=== PATIENT | female | born 1940 | race Caucasian/White ===

== ENCOUNTER 2019-12-03 14:07 | Emergency (ER) | payer MEDICARE, BC ==
[2019-12-03 15:05] LABS: POTASSIUM,POC 4.4 mmol/L (3.5-4.5)
[2019-12-03] MEDS ORDERED: Meclizine 25 MG Tab PO ONE (15:15)
[2019-12-03] MEDS ORDERED: Ondansetron 4 MG Tab.DIS PO ONE (15:31)
--- NOTE | 2019-12-03 15:57 | EDM.PDOC ---
ED HPI GENERAL MEDICAL PROBLEM - General Chief Complaint: General Stated Complaint: dizziness Time Seen by Provider: 12/03/19 14:20 Source of Information: Reports: Patient History Limitations: Reports: No Limitations - History of Present Illness INITIAL COMMENTS - FREE TEXT/NARRATIVE: Pt with dizziness Worse when moves or moves head Better when sitting still No fever No chest pain No cough No SOB Has had this before Onset: Gradual Duration: Day(s): Location: Reports: Generalized - Related Data Allergies Allergy/AdvReac Type Severity Reaction Status Date / Time morphine Allergy Vomiting Verified 12/03/19 14:27 Home Meds: Home Meds Ascorbic Acid [Vitamin C] 1,000 mg PO DAILY 12/03/19 [History] Bilberry 375 mg PO DAILY 12/03/19 [History] Calcium Carb, Cit/Magnesium Ox [Calmag Thins Tablet] 1 each PO DAILY 12/03/19 [History] Cholecalciferol (Vitamin D3) [Vitamin D3] 2,000 unit PO DAILY 12/03/19 [History] Flaxseed Oil [Flax Oil] 1,000 mg PO DAILY 12/03/19 [History] Glucosamine [Glucosamine Sulfate] 1,000 mg PO DAILY 12/03/19 [History] Lutein 20 mg PO DAILY 12/03/19 [History] Magnesium 250 mg PO DAILY 12/03/19 [History] Potassium Gluconate [Potassium] 99 mg PO DAILY 12/03/19 [History] Vitamin E 400 unit PO DAILY 12/03/19 [History] Past Medical History - Past Health History Medical/Surgical History: Denies Medical/Surgical History Social & Family History - Tobacco Use Tobacco Use Status *Q: Never Tobacco User Second Hand Smoke Exposure: No ED ROS GENERAL - Review of Systems Review Of Systems: See Below HEENT: Reports: No Symptoms Respiratory: Reports: No Symptoms Cardiovascular: Reports: No Symptoms GI/Abdominal: Reports: No Symptoms Musculoskeletal: Reports: No Symptoms Neurological: Reports: Dizziness ED EXAM, GENERAL - Physical Exam Exam: See Below Exam Limited By: No Limitations General Appearance: Alert, WD/WN, Mild Distress Eye Exam: Bilateral Eye: EOMI, PERRL Ears: Normal External Exam, Normal Canal, Normal TMs Nose: Normal Inspection Throat/Mouth: Normal Oropharynx Respiratory/Chest: Lungs Clear Cardiovascular: Regular Rate, Rhythm Extremities: Normal Inspection Neurological: Alert, Oriented, No Motor/Sensory Deficits Course - Vital Signs Last Recorded V/S: Last Vital Signs Temp 98.2 F 12/03/19 14:34 Pulse 84 12/03/19 14:34 Resp 16 12/03/19 14:34 BP 127/58 L 12/03/19 14:34 Pulse Ox 97 12/03/19 14:34 - Orders/Labs/Meds Orders: Active Orders 24 hr Category Date Time Status EKG 12 Lead [EKG Documentation Completion] [RC] URGENT Care 12/03/19 14:14 Active PT Evaluation and Treatment [CONS] Routine Cons 12/03/19 15:12 Active COMPREHENSIVE METABOLIC PN,CMP [CHEM] Stat Lab 12/03/19 14:26 Results Labs: Laboratory Tests 12/03/19 12/03/19 12/03/19 Range/Units 14:26 14:26 14:53 WBC 5.3 (4.0-10.0) x10^3/uL RBC 4.56 (4.00-5.50) x10^6/uL Hgb 13.3 (12.0-16.0) g/dL Hct 41.6 (33.0-47.0) % MCV 91.2 (78.0-93.0) fL MCH 29.2 (26.0-32.0) pg MCHC 32.0 (32.0-36.0) g/dL RDW Coeff of Chelo 13.3 (10.0-15.0) % Plt Count 169 (130-400) x10^3/uL Neut % (Auto) 68.7 (50.0-80.0) % Lymph % (Auto) 24.0 L (25.0-50.0) % [place] % (Auto) 5.4 (2.0-11.0) % Eos % (Auto) 1.7 (0.0-4.0) % Baso % (Auto) 0.2 (0.2-1.2) % POC Sodium 141 (138-146) mmol/L Sodium TNP POC Potassium 4.4 (3.5-4.5) mmol/L Potassium TNP POC Chloride 105 (98-107) mmol/L Chloride TNP Carbon Dioxide TNP POC Total CO2 26 (23-30) mmol/L Anion Gap TNP POC Anion Gap 14 (7-16) mmol/L POC BUN 11 (8-26) mg/dL BUN TNP Creatinine TNP POC Creatinine 0.98 (0.51-1.19) mg/dl Glucose TNP POC Glucose 111 H (74-100) mg/dL POC Troponin I (0.00-0.08) ng/mL Troponin I Cancelled 12/03/19 Range/Units 14:54 WBC (4.0-10.0) x10^3/uL RBC (4.00-5.50) x10^6/uL Hgb (12.0-16.0) g/dL Hct (33.0-47.0) % MCV (78.0-93.0) fL MCH (26.0-32.0) pg MCHC (32.0-36.0) g/dL RDW Coeff of [place] (10.0-15.0) % Plt Count (130-400) x10^3/uL Neut % (Auto) (50.0-80.0) % Lymph % (Auto) (25.0-50.0) % [place] % (Auto) (2.0-11.0) % Eos % (Auto) (0.0-4.0) % Baso % (Auto) (0.2-1.2) % POC Sodium (138-146) mmol/L Sodium POC Potassium (3.5-4.5) mmol/L Potassium POC Chloride (98-107) mmol/L Chloride Carbon Dioxide POC Total CO2 (23-30) mmol/L Anion Gap POC Anion Gap (7-16) mmol/L POC BUN (8-26) mg/dL BUN Creatinine POC Creatinine (0.51-1.19) mg/dl Glucose POC Glucose (74-100) mg/dL POC Troponin I 0.00 (0.00-0.08) ng/mL Troponin I Meds: Medications Discontinued Medications Generic Name Dose Route Start Last Admin Trade Name Freq PRN Reason Stop Dose Admin Meclizine HCl 25 mg 12/03/19 15:15 12/03/19 15:21 Antivert PO 12/03/19 15:16 25 mg ONETIME ONE Administration Ondansetron HCl 4 mg 12/03/19 15:31 12/03/19 15:40 Zofran Odt PO 12/03/19 15:32 4 mg ONETIME ONE Administration - Re-Assessments/Exams Free Text/Narrative Re-Assessment/Exam: 12/03/19 15:54 Pt stable in ER Pt seen in ER by PT Symptoms improved Departure - Departure Time of Disposition: 15:55 Disposition: Home, Self-Care 01 Clinical Impression: Vertigo - Discharge Information *PRESCRIPTION DRUG MONITORING PROGRAM REVIEWED*: Not Applicable *COPY OF PRESCRIPTION DRUG MONITORING REPORT IN PATIENT DEVENDRA: Not Applicable Instructions: How to Perform the Martin Maneuver, Dizziness, [id number] Referrals: PCP,None [Primary Care Provider] - Additional Instructions: Follow up in clinic Rx Meclizine 25 mg PO tid prn Sepsis Event Note (ED) - Evaluation Sepsis Screening Result: No Definite Risk - Focused Exam Vital Signs: Vital Signs Temp Pulse Resp BP Pulse Ox 12/03/19 14:34 98.2 F 84 16 127/58 L 97 - My Orders Last 24 Hours: My Active Orders 12/03/19 14:14 EKG 12 Lead [EKG Documentation Completion] [RC] URGENT 12/03/19 14:26 COMPREHENSIVE METABOLIC PN,CMP [CHEM] Stat 12/03/19 15:12 PT Evaluation and Treatment [CONS] Routine - Assessment/Plan Last 24 Hours: My Active Orders 12/03/19 14:14 EKG 12 Lead [EKG Documentation Completion] [RC] URGENT 12/03/19 14:26 COMPREHENSIVE METABOLIC PN,CMP [CHEM] Stat 12/03/19 15:12 PT Evaluation and Treatment [CONS] Routine
== END 2019-12-03 16:15 | disposition home or self-care (01) ==
LOC: VM.ED 14:07
DX: R42 Dizziness and giddiness (principal); Z88.5 Allergy status to narcotic agent
CPT/HCPCS: 36415; 80047; 80053; 84484; 85025; 93005; 97161-GP; 99284; 99284-25; A9270-GY